=== PATIENT | female | born 1945 | race Caucasian/White ===

== ENCOUNTER → 2018-02-11 07:27 | Outpatient (CLI) | payer MEDICARE, OTHER, SELFPAY ==
[2018-02-11 10:46] LABS: Microalbumin,Random Urine 13.2 mg/L (NO RANGE EST.); Microalbumin:Creatinine Ratio 23.4 mg/g CRE (<30 mg/g CRE)
[2018-02-11 11:13] LABS: ALB/GLOB Ratio 1.1 RATIO (0.9-2.4); AST(SGOT) 23 U/L (15-37); Alanine Aminotransfer ALT/SGPT 28 U/L (13-56); Albumin, Serum 3.7 g/dL (3.2-5.0); Alkaline Phosphatase 76 U/L (45-117); Anion Gap 6 (5-15); BUN 24 mg/dL (7-18); BUN/Creat Ratio 34.1 RATIO (10-20); Calcium,Total 8.3 mg/dL (8.5-10.1); Chloride 106 mmol/L (98-107); Cholesterol 176 mg/dL (200); EST Glomerular Filtration Rate 87 mL/min (>60); Est Glom Filt Rate - Afr Amer 105 mL/min (>60); Globulin 3.3 g/dL (2.2-4.2); Glucose 97 mg/dL (74-106); High Density Lipoprotein 53 mg/dL; Sodium Level 142 mmol/L (136-145); Thyroid Stim Hormone (TSH) 3.89 uIU/mL (0.358-3.74); Triglycerides 104 mg/dL; Very Low Density Lipoprotein 21 mg/dL (5-40)
== END ==
PROVIDERS: Family Provider Family Medicine; PCP Family Medicine; Visit Provider Family Medicine
DX: E78.5 Hyperlipidemia, unspecified (principal); I10 Essential (primary) hypertension
CPT/HCPCS: 36415; 80053; 80061; 82043; 82570; 84443

== ENCOUNTER → 2018-08-12 11:29 | Outpatient (CLI) | payer MEDICARE, OTHER, SELFPAY ==
[2018-08-12 14:23] LABS: Vitamin D,25 Hydroxy 23.8 ng/mL (29.95-100.01)
[2018-08-12 14:33] LABS: Anion Gap 7 (5-15); BUN 15 mg/dL (7-18); Calcium,Total 9.2 mg/dL (8.5-10.1); Chloride 103 mmol/L (98-107); Creatinine, Serum 0.79 mg/dL (0.55-1.02); EST Glomerular Filtration Rate 76 mL/min (>60); Est Glom Filt Rate - Afr Amer 93 mL/min (>60); Glucose 84 mg/dL (74-106); Magnesium 2.1 mg/dL (1.6-2.6); Potassium 4.3 mmol/L (3.5-5.1); Sodium Level 140 mmol/L (136-145); Thyroid Stim Hormone (TSH) 2.97 uIU/mL (0.358-3.74)
[2018-08-12 14:51] LABS: PTHIN 47.9 pg/mL (18.4-80.1)
== END ==
PROVIDERS: Family Provider Family Medicine; PCP Family Medicine; Visit Provider Family Medicine
DX: E83.51 Hypocalcemia (principal); R00.2 Palpitations
CPT/HCPCS: 36415; 80048; 82306; 83735; 83970; 84443

== ENCOUNTER 2018-09-25 11:30 | Outpatient (RCR) | payer MEDICARE, OTHER, SELFPAY ==
--- NOTE | 2018-09-07 11:28 | HP.PTEVAL_ITS ---
Patient's Visit Information CARMEN CHENG is a 73 year old F referred to Physical Therapy by Etienne Pennington with a diagnosis of Hamstring Strain. Date of Evaluation: 09/04/18 Physical Therapist: Belen Santos - Visit Plan Frequency: 2-3x /Week Duration: 3 Weeks Plan: LE and core s/s- modality of US as needed - Subjective Findings: About 3 weeks ago saw her PCP and she had complained of pain in the back of the knee on the right side. He examined it and though it was her hamstring so he gave her an anti-inflammatory after a couple of weeks it continued to get worse and moved around the knee- and it has now stayed on the medial side of the knee. Changed the medication to Celebrex and ordered PT. Today she felt like she could be up a little longer but then she has been walking around its been pretty sore. Eases: ice/heat, medication. Most comfortable is sitting. Has been putting a pillow between her knees- side sleeper- not disturbed. Describes the pain as sharp and after doing that then its achy. Has not had any x-rays or MRI. Worst: 8/10 Best: 0/10 Agg: being up on it. Has been avoiding stairs but went down yesterday and has felt a little pinch. No radiating pain. No N/T in the foot. Insidious onsest- but raked leaves prior- but no incidence. PMhx: HTN, cholesterol, anxiety. Meds: simvistatin, petroprolol, adavain. - Objective Posture: Fh, RS, can correct with VC's but does not maintain. Gait: slightly antalgic decreased stance with poor heel/toe pattern. Stairs: asc/desc 8 recip with 2 HR and reports pain- poor control'. HR/TR: able. SLS: 10 sec without LOB. Palpation: not tender. ROM: 0-120 degrees. Strength: Ankle: 5/5, Knee: 4+/5, Hip: 4/5 throughout Core: fair minus - Goals Goal 1:: Patient will be I with HEP and progression Goal Time Frame: 4-6 Weeks Goal 2:: Patient will ambulate >300 feet with a normalized gait pattern Goal Time Frame: 4-6 Weeks Goal 3:: Patient will demo 5/5 strength in LE Goal Time Frame: 4-6 Weeks Goal 4:: Patient will report 0/10 pain Goal Time Frame: 4-6 Weeks - Rehabilitation Potential Physical Therapy Diagnosis: Paula presents with hypomobility- she has decreased strength and muscular endurance leading to increased pain with ADL's. Rehabilitation Potential: Fair - Anticipated Interventions Patient/Client Instruction: Educate patient on: Benefits of Fitness Program Therapeutic Exercise to Include: Strength training, Endurance training, Balance training, Agility training, Body mechanics, Postural training, Flexibilty training, Gait and locomotor training, Passive ROM, Active ROM, Dynamic Lumbar Stabilization For the Purpose of:: To improve muscle performance and motor function TENS: Yes Cryotherapy (ice pack, ice massage): Yes Thermo therapy (hot pack): Yes Ultrasound (thermal/non thermal): Yes For the Purpose of:: To decrease pain, To decrease swelling/inflammation Thank you for the opportunity to evaluate your patient. For Medicare and Medicare HMO plans, please review the plan of care and approve it. It will need to be FAXED BACK to us at [phone] for Medicare purposes. For Medicare only, by signing this I certify the plan of care. Please let me know if there are questions or concerns regarding this plan of care. Physician Signature : Date:
--- NOTE | 2018-09-25 11:46 | HP.PTDCSUM ---
HP - PT D/C Summary It has been my pleasure to treat CARMEN CHENG under orders from Etienne Penningotn MD, for the diagnosis of Hamstring Strain for a total of 9 visit(s). Discharge Date: Please see the following information for a summary of their discharge status. - Subjective Subjective: Patient reports that the knee is much better- she can walk around the house and do all normal stuff with minimal to no pain. Runs into a little bit of a snag walking upstairs with something in her hands. In the last few days she started taking Celebrex and that has really helped a lot and she is painfree. - Pain right knee Pain Intensity (Out of 10): 2 - Overall Improvement % Improvement: 100 - Objective Objective/Function: Posture: good posture in sitting in hard back chair Gait: no deviation noted Stairs: asc/desc 8 recip with no HR and good control and emily. HR/TR: able. SLS: 10 sec without LOB. Palpation: not tender. ROM: 0-120 degrees. Strength: Ankle: 5/5, Knee: 5/5, Hip: 4+/5 throughout Core: fair plus - Goals Goal 1:: Patient will be I with HEP and progression Goal Progress: Goal Met Goal 2:: Patient will ambulate >300 feet with a normalized gait pattern Goal Progress: Goal Met Goal 3:: Patient will demo 5/5 strength in LE Goal Progress: Goal Met Goal 4:: Patient will report 0/10 pain Goal Progress: Progressing - Plan Plan: Discharge to [facility] HEP - D/C Information If there are questions or concerns regarding this patient's physical therapy, please feel free to call me at [phone]. Thank you for the referral of this patient. Sincerely, Belen Santos DPT
== END 2018-09-25 19:00 | disposition home or self-care (01) ==
LOC: PT 11:30
PROVIDERS: Family Provider Family Medicine; PCP Family Medicine; Referring Provider Family Medicine; Visit Provider Family Medicine
DX: S76.311D Strain of muscle, fascia and tendon of the posterior muscle group at thigh level, right thigh, subsequent encounter (principal)
CPT/HCPCS: 97035; 97110; 97161; 97164

== ENCOUNTER → 2019-02-11 | Outpatient (CLI) | payer MEDICARE, OTHER, SELFPAY ==
[2019-02-11 10:14] LABS: Anion Gap 5 (5-15); BUN 14 mg/dL (7-18); BUN/Creat Ratio 21.7 RATIO (10-20); Calcium,Total 8.9 mg/dL (8.5-10.1); Chloride 107 mmol/L (98-107); Creatinine, Serum 0.64 mg/dL (0.55-1.02); EST Glomerular Filtration Rate 96 mL/min (>60); Est Glom Filt Rate - Afr Amer 116 mL/min (>60); Glucose 92 mg/dL (74-106); Magnesium 2.6 mg/dL (1.6-2.6); Potassium 4.2 mmol/L (3.5-5.1); Sodium Level 143 mmol/L (136-145)
[2019-02-11 10:45] LABS: Vitamin D,25 Hydroxy 31.8 ng/mL (29.95-100.01)
== END | disposition home or self-care (01) ==
LOC: MFPLAB 08:42
PROVIDERS: Family Provider Family Medicine; PCP Family Medicine; Referring Provider Family Medicine; Visit Provider Family Medicine
DX: I10 Essential (primary) hypertension (principal); E55.9 Vitamin D deficiency, unspecified
CPT/HCPCS: 36415; 80048; 82306; 83735

== ENCOUNTER → 2019-06-30 14:17 | Outpatient (CLI) | payer MEDICARE, OTHER, SELFPAY ==
--- NOTE | 2019-06-30 14:24 | RAD_ITS ---
STUDY: X-RAY CHEST REASON FOR EXAM: Female, 74 years old. Preoperative exam TECHNIQUE: Frontal and lateral views of the chest COMPARISON: None. FINDINGS: The lungs are clear. There are no pleural effusions. There is no pneumothorax. The heart is normal in size. The visualized osseous structures are within normal limits. RAD/Chest PA and Lateral IMPRESSION: Clear lungs. Electronically Signed: Costa Castañeda, at 19:16 EDT Tel , Service support ,
--- NOTE | 2019-06-30 14:37 | EKG12_ITS ---
Test Reason : PRE OP Blood Pressure : / mmHG Vent. Rate : 057 BPM Atrial Rate : 057 BPM P-R Int : 180 ms QRS Dur : 084 ms QT Int : 448 ms P-R-T Axes : 053 012 049 degrees QTc Int : 436 ms Sinus bradycardia Possible Left atrial enlargement Borderline ECG Confirmed by CIRO ROBLEDO ([id number]), business editor RAINER MCMAHON ([id number]) on 07/05/2019 12:33:52 PM Also confirmed by CIRO ROBLEDO ([id number]), business editor BA CROCKETT ([id number]) on 07/07/2019 8:55:13 AM Referred By: Kelechi Crockett Confirmed By:CIRO ROBLEDO
== END ==
PROVIDERS: Family Provider Family Medicine; PCP Family Medicine; Referring Provider Orthopaedic Surgery; Visit Provider Orthopaedic Surgery
DX: Z01.811 Encounter for preprocedural respiratory examination (principal); Z01.810 Encounter for preprocedural cardiovascular examination
CPT/HCPCS: 71046; 93005

== ENCOUNTER → 2019-08-19 13:46 | Outpatient (CLI) | payer MEDICARE, OTHER, SELFPAY ==
--- NOTE | 2019-08-19 13:49 | VDLE_ITS ---
Reason For Study: Pain RIGHT GSV is normal. CFV is compressible, spontaneous, phasic, competent and demonstrates normal augmentation. FV is compressible, spontaneous, phasic, competent and demonstrates normal augmentation. POP V is compressible, spontaneous, phasic, competent and demonstrates normal augmentation. T/P Trunk is compressible. PTV is compressible. RT PerV is compressible. Procedure Exam performed in department. A preliminary report was called and/or faxed to [facility]. Interpretation Summary Deep veins of the right lower extremity are patent and compressible segmentally. There is no evidence of right lower extremity deep vein thrombosis. Valvular competence appears intact within the proximal deep venous system on the right . The right great saphenous vein appears patent and compressible segmentally. Ordering Physician: Tami Stovall Referring Physician: Etienne Pennington MD Performed By: Adriana Baumann RVT
== END ==
PROVIDERS: Family Provider Family Medicine; PCP Family Medicine; Referring Provider Physician Assistant; Visit Provider Physician Assistant
DX: M79.661 Pain in right lower leg (principal); Z96.651 Presence of right artificial knee joint; Z47.1 Aftercare following joint replacement surgery
CPT/HCPCS: 93971

== ENCOUNTER → 2019-11-10 12:24 | Outpatient (CLI) | payer MEDICARE, OTHER, SELFPAY ==
--- NOTE | 2019-11-10 12:28 | BI_ITS ---
MAMMOGRAPHY - BILATERAL SCREENING REASON FOR EXAM: Female, 74 years old. Routine annual screening examination. PERTINENT HISTORY: Non-contributory. Remote right needle breast biopsy. TECHNIQUE: Digital bilateral breast jono (3D mammographic acquisition) in the CC and MLO projections. 2-D mediolateral oblique (MLO) and craniocaudad (CC) views of both breasts were obtained. CAD: Full Field Digital Mammography with Computer Added Detection was performed. COMPARISON: Comparison is made with prior examination of September 08, 2017. FINDINGS: Breast Composition: The breasts are heterogeneously dense, which may obscure small masses. There are no dominant masses or suspicious calcifications. No other significant abnormalities are identified. There has been no significant change since the prior study. BI/SCREEN MAMM (CAD) W/JONO BILAT IMPRESSION: Stable bilateral screening mammogram. Yearly follow-up mammogram recommended. (A) ASSESSMENT CATEGORY: BIRADS Category 1: Negative. A letter regarding these results will be sent to the patient by the facility within 30 days. Approximately 10% of breast cancers are not detected by mammography. A normal mammogram should not delay biopsy of a clinically suspicious abnormality. [id number] Electronically Signed: Bhavik Rose, at 13:45 EST , Service support ,
== END ==
PROVIDERS: PCP Family Medicine; Referring Provider Family Medicine; Visit Provider Family Medicine
DX: Z12.31 Encounter for screening mammogram for malignant neoplasm of breast (principal)
CPT/HCPCS: 77063; 77067

== ENCOUNTER → 2020-01-25 12:28 | Outpatient (CLI) | payer MEDICARE, OTHER, SELFPAY ==
[2020-01-25 14:59] LABS: Hematocrit 43.6 % (37-47); Mean Corp Hgb Conc 32.1 g/dL (32-36); Mean Corpuscular Hgb 28.1 pg (27.0-32.0); Mean Corpuscular Volume 87.4 fL (81-99); Mean Platelet Vol. 10.6 fl (6.2-12.0); Platelet Count 256 K/mm3 (150-450); RBC Distribution Width CV 13.2 % (11.6-14.6); RBC Distribution Width SD 41.9 fl (35.1-43.9); Red Blood Count 4.99 M/mm3 (4.2-5.4); White Blood Count 7.6 K/mm3 (4.4-11.0)
[2020-01-25 15:27] LABS: ALB/GLOB Ratio 1.2 RATIO (0.9-2.4); AST(SGOT) 21 U/L (15-37); Alanine Aminotransfer ALT/SGPT 25 U/L (13-56); Albumin, Serum 3.9 g/dL (3.2-5.0); Alkaline Phosphatase 91 U/L (45-117); Anion Gap 7 (5-15); BUN 15 mg/dL (7-18); BUN/Creat Ratio 18.7 RATIO (10-20); Chloride 106 mmol/L (98-107); EST Glomerular Filtration Rate 74 mL/min (>60); Est Glom Filt Rate - Afr Amer 90 mL/min (>60); Globulin 3.3 g/dL (2.2-4.2); Glucose 145 mg/dL (74-106); Potassium 4.1 mmol/L (3.5-5.1); Protein, Total 7.2 g/dL (6.4-8.2); Sodium Level 140 mmol/L (136-145); Thyroid Stim Hormone (TSH) 2.82 uIU/mL (0.358-3.74)
[2020-01-25 16:00] LABS: Vitamin D,25 Hydroxy 55.2 ng/mL
== END ==
PROVIDERS: PCP Family Medicine; Referring Provider Family Medicine; Visit Provider Family Medicine
DX: R00.2 Palpitations (principal); E55.9 Vitamin D deficiency, unspecified
CPT/HCPCS: 36415; 80053; 82306; 84443; 85027

== ENCOUNTER → 2020-05-23 10:32 | Outpatient (CLI) | payer MEDICARE, SELFPAY ==
[2020-05-23 12:55] LABS: Cholesterol 177 mg/dL (200); High Density Lipoprotein 63 mg/dL; Triglycerides 94 mg/dL; Very Low Density Lipoprotein 19 mg/dL (5-40)
== END ==
PROVIDERS: PCP Family Medicine; Referring Provider Family Medicine; Visit Provider Family Medicine
DX: E78.5 Hyperlipidemia, unspecified (principal)
CPT/HCPCS: 36415; 80061

== ENCOUNTER → 2020-05-23 12:52 | Outpatient (CLI) | payer MEDICARE, OTHER, SELFPAY ==
--- NOTE | 2020-05-23 12:58 | BD_ITS ---
STUDY: DUAL ENERGY X-RAY ABSORPTIOMETRY / DXA REASON FOR EXAM: Female, 75 years old. 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 COMPARISON: None. FINDINGS: Lumbar Spine (L1-L4): g/cm2 (0.991) / T-score (-1.6) / Z-score (0.1) Findings are suggestive of osteopenia with a moderate fracture risk. Left Femur Total: g/cm2 (0.853) / T-score (-1.2) / Z-score (0.4) Left Femoral Neck: g/cm2 (0.835) / T-score (-1.5) / Z-score (0.4) Right Femur Total: g/cm2 (0.778) / T-score (-1.8) / Z-score (-0.2) Right Femoral Neck: g/cm2 (0.787) / T-score (-1.8) / Z-score (0.0) BD/Dexa Bone Density Study IMPRESSION: The patient is considered osteopenic as outlined below according to World Alfredo Organization (WHO) criteria with a moderate fracture risk. Reference Information: The T-score is the number of standard deviations above or below the standard which is normal for young adults at their peak bone mineral density. The World Health Organization (WHO) interprets the T-scores as follows: Above -1 Normal bone density Between -1 and -2.5 Osteopenia Equal to / or below -2.5 Osteoporosis As a practical clinical guideline, osteopenia may be graded as follows: Mild -1 through -1.5 Moderate -1.6 through -2.0 Severe -2.1 through -2.4 The Z-score is the number of standard deviations above or below age-matched controls. A Z-score of less than -1.5 would be considered abnormal. References: 1. NIH Osteoporosis and Related Bone Diseases http://www.osteo.org 2. International Society for Clinical Densitometry http://www.iscd.org 3. National Osteoporosis Foundation http://www.nof.org Electronically Signed: Bhavik Rose, at 12:59 EDT , Service support ,
== END ==
PROVIDERS: PCP Family Medicine; Referring Provider Family Medicine; Visit Provider Family Medicine
DX: Z00.00 Encounter for general adult medical examination without abnormal findings (principal); Z78.0 Asymptomatic menopausal state; E78.5 Hyperlipidemia, unspecified
CPT/HCPCS: 36415; 77080; 80061

== ENCOUNTER → 2020-11-13 11:54 | Outpatient (CLI) | payer MEDICARE, OTHER, SELFPAY ==
--- NOTE | 2020-11-13 11:58 | BI_ITS ---
MAMMOGRAPHY - BILATERAL SCREENING REASON FOR EXAM: Female, 75 years old. Routine annual screening examination. PERTINENT HISTORY: Non-contributory. TECHNIQUE: Digital bilateral breast jono (3D mammographic acquisition) in the CC and MLO projections. 2-D mediolateral oblique (MLO) and craniocaudad (CC) views of both breasts were obtained. CAD: Full Field Digital Mammography with Computer Added Detection was performed. COMPARISON: Comparison is made with prior examination dated 11/10/2019 and 09/08/2017. FINDINGS: Breast Composition: The breasts are heterogeneously dense, which may obscure small masses. There are no dominant masses or suspicious calcifications. No other significant abnormalities are identified. There has been no significant change since the prior study. BI/SCRN MAMM (CAD)W/JONO BILAT IMPRESSION: Stable bilateral screening mammogram. Yearly follow-up mammogram recommended. (A) ASSESSMENT CATEGORY: BIRADS Category 1: Negative. A letter regarding these results will be sent to the patient by the facility within 30 days. Approximately 10% of breast cancers are not detected by mammography. A normal mammogram should not delay biopsy of a clinically suspicious abnormality. [id number] Electronically Signed: Bhavik Rose MD at 12:49 EST , Service support ,
== END ==
PROVIDERS: PCP Family Medicine; Referring Provider Family Medicine; Visit Provider Family Medicine
DX: Z12.31 Encounter for screening mammogram for malignant neoplasm of breast (principal)
CPT/HCPCS: 77063; 77067

== ENCOUNTER → 2021-08-17 | Outpatient (CLI) | payer MEDICARE, OTHER, SELFPAY ==
[2021-08-17 19:38] LABS: M R Staph aureus DNA By PCR Negative (Negative); Probe Check PASS; Specimen Processing Control PASS; Staph aureus DNA By PCR NEGATIVE (Negative)
== END | disposition home or self-care (01) ==
PROVIDERS: PCP Family Medicine; Visit Provider Podiatrist
DX: L03.90 Cellulitis, unspecified (principal)
CPT/HCPCS: 87070; 87075; 87205; 87640

== ENCOUNTER → 2021-09-03 | Outpatient (CLI) | payer MEDICARE, OTHER, SELFPAY | END | disposition home or self-care (01) | PROVIDERS: PCP Family Medicine; Referring Provider Family Medicine; Visit Provider Family Medicine | DX: R19.7 Diarrhea, unspecified (principal) | CPT/HCPCS: 87493 ==

== ENCOUNTER 2021-11-14 13:59 | Outpatient (CLI) | payer MEDICARE, OTHER, SELFPAY ==
--- NOTE | 2021-11-14 14:00 | BI_ITS ---
MAMMOGRAPHY - BILATERAL SCREENING REASON FOR EXAM: Female, 76 years old. Routine annual screening examination. PERTINENT HISTORY: Non-contributory. TECHNIQUE: Digital bilateral breast jono (3D mammographic acquisition) in the CC and MLO projections. 2-D mediolateral oblique (MLO) and craniocaudad (CC) views of both breasts were obtained. CAD: Full Field Digital Mammography with Computer Added Detection was performed. COMPARISON: Comparison is made with prior study dated 11/13/2020 and 11/10/2019. FINDINGS: Breast Composition: The breasts are heterogeneously dense, which may obscure small masses. There are no dominant masses or suspicious calcifications. No other significant abnormalities are identified. There has been no significant change since the prior study. BI/SCRN MAMM (CAD)W/JONO BILAT IMPRESSION: Stable bilateral screening mammogram. Yearly follow-up mammogram recommended. (A) ASSESSMENT CATEGORY: BIRADS Category 1: Negative. A letter regarding these results will be sent to the patient by the facility within 30 days. Approximately 10% of breast cancers are not detected by mammography. A normal mammogram should not delay biopsy of a clinically suspicious abnormality. [id number] Electronically Signed: Bhavik Rose MD at 14:48 EST ,
== END 2021-11-14 23:59 | disposition home or self-care (01) ==
LOC: OPBI 13:59
PROVIDERS: PCP Family Medicine; Referring Provider Family Medicine; Visit Provider Family Medicine
DX: Z12.31 Encounter for screening mammogram for malignant neoplasm of breast (principal)
CPT/HCPCS: 77063; 77067

== ENCOUNTER 2021-12-21 14:52 | Outpatient (CLI) | payer MEDICARE, OTHER, SELFPAY ==
[2021-12-21 18:16] LABS: Anion Gap 4 (5-15); BUN 15 mg/dL (7-18); BUN/Creat Ratio 18.7 RATIO (10-20); Calcium,Total 8.9 mg/dL (8.5-10.1); Chloride 105 mmol/L (98-107); EST Glomerular Filtration Rate 74 mL/min (>60); Est Glom Filt Rate - Afr Amer 90 mL/min (>60); Glucose 129 mg/dL (74-106); Potassium 3.6 mmol/L (3.5-5.1); Sodium Level 141 mmol/L (136-145); Thyroid Stim Hormone (TSH) 3.25 uIU/mL (0.358-3.74)
[2021-12-21 18:26] LABS: Microalbumin:Creatinine Ratio 45.5 mg/g CRE (<30 mg/g CRE)
== END 2021-12-21 23:59 | disposition home or self-care (01) ==
LOC: MFPLAB 14:57
PROVIDERS: PCP Family Medicine; Referring Provider Family Medicine; Visit Provider Family Medicine
DX: I10 Essential (primary) hypertension (principal); F41.9 Anxiety disorder, unspecified; L71.9 Rosacea, unspecified
CPT/HCPCS: 36415; 80048; 82043; 82570; 84443

== ENCOUNTER → 2022-11-08 | Outpatient (CLI) | payer MEDICARE, OTHER, SELFPAY ==
[2022-11-08 13:38] LABS: ALB/GLOB Ratio 1.1 RATIO (0.9-2.4); AST(SGOT) 21 U/L (15-37); Alanine Aminotransfer ALT/SGPT 22 U/L (13-56); Albumin, Serum 3.7 g/dL (3.2-5.0); Alkaline Phosphatase 83 U/L (45-117); Anion Gap 7 (5-15); BUN 17 mg/dL (7-18); BUN/Creat Ratio 22.6 RATIO (10-20); Calcium,Total 9.2 mg/dL (8.5-10.1); Chloride 107 mmol/L (98-107); Cholesterol 195 mg/dL (200); Creatinine, Serum 0.75 mg/dL (0.55-1.02); EST Glomerular Filtration Rate 80 mL/min (>60); Est Glom Filt Rate - Afr Amer 96 mL/min (>60); Globulin 3.5 g/dL (2.2-4.2); Glucose 105 mg/dL (74-106); High Density Lipoprotein 57 mg/dL; Potassium 4.4 mmol/L (3.5-5.1); Protein, Total 7.2 g/dL (6.4-8.2); Sodium Level 143 mmol/L (136-145); Thyroid Stim Hormone (TSH) 2.67 uIU/mL (0.358-3.74); Triglycerides 140 mg/dL; Very Low Density Lipoprotein 28 mg/dL (5-40)
== END | disposition home or self-care (01) ==
PROVIDERS: PCP Family Medicine; Referring Provider Family Medicine; Visit Provider Family Medicine
DX: I10 Essential (primary) hypertension (principal)
CPT/HCPCS: 36415; 80053; 80061; 84443

== ENCOUNTER → 2022-11-20 | Outpatient (CLI) | payer MEDICARE, OTHER, SELFPAY ==
--- NOTE | 2022-11-20 09:21 | BI_ITS ---
MAMMOGRAPHY - BILATERAL SCREENING REASON FOR EXAM: Female, 77 years old. Routine annual screening examination. PERTINENT HISTORY: Non-contributory. TECHNIQUE: Digital bilateral breast jono (3D mammographic acquisition) in the CC and MLO projections. 2-D mediolateral oblique (MLO) and craniocaudad (CC) views of both breasts were obtained. CAD: Full Field Digital Mammography with Computer Added Detection was performed. COMPARISON: Comparison is made with prior study dated 11/14/2021 and 11/13/2020. FINDINGS: Breast Composition: The breasts are heterogeneously dense, which may obscure small masses. There are no dominant masses or suspicious calcifications. No other significant abnormalities are identified. There has been no significant change since the prior study. BI/SCRN MAMM (CAD)W/JONO BILAT IMPRESSION: Stable bilateral screening mammogram. Yearly follow-up mammogram recommended. (A) ASSESSMENT CATEGORY: BIRADS Category 1: Negative. A letter regarding these results will be sent to the patient by the facility within 30 days. Approximately 10% of breast cancers are not detected by mammography. A normal mammogram should not delay biopsy of a clinically suspicious abnormality. [id number] Electronically Signed: Bhavik Rose MD at 10:28 EST ,
--- NOTE | 2022-11-20 09:25 | BD_ITS ---
STUDY: DUAL ENERGY X-RAY ABSORPTIOMETRY / DXA REASON FOR EXAM: Female, 77 years old. M85.89 TECHNIQUE: Bone Mineral Density (BMD) measurements of lumbar spine and bilateral hips were obtained. COMPARISON: Comparison is made with prior study dated 05/23/2020. FINDINGS: Lumbar Spine (L1-L4): g/cm2 (0.867) / T-score (-1.6) / Z-score (0.8) Findings are suggestive of osteopenia with a moderate fracture risk. Left Femur Total: g/cm2 (0.804) / T-score (-1.1) / Z-score (0.7) Left Femoral Neck: g/cm2 (0.665) / T-score (-1.7) / Z-score (0.5) Right Femur Total: g/cm2 (0.747) / T-score (-1.6) / Z-score (0.2) Right Femoral Neck: g/cm2 (0.625) / T-score (-2.0) / Z-score (0.1) The T-Scores on the most recent prior examination were: Lumbar Spine (L1-L4): There has been worsening of bone density since the previous examination. Left Femur Total: which represents an improvement of 1.7%. Right Femur Total: which represents an improvement of 4%. BD/Dexa Bone Density Study IMPRESSION: The patient is considered osteopenic as outlined below according to World Alfredo Organization (WHO) criteria with a moderate fracture risk. There has been improvement of bone density since the previous examination. Reference Information: The T-score is the number of standard deviations above or below the standard which is normal for young adults at their peak bone mineral density. The World Health Organization (WHO) interprets the T-scores as follows: Above -1 Normal bone density Between -1 and -2.5 Osteopenia Equal to / or below -2.5 Osteoporosis As a practical clinical guideline, osteopenia may be graded as follows: Mild -1 through -1.5 Moderate -1.6 through -2.0 Severe -2.1 through -2.4 The Z-score is the number of standard deviations above or below age-matched controls. A Z-score of less than -1.5 would be considered abnormal. References: 1. NIH Osteoporosis and Related Bone Diseases www osteo.org 2. International Society for Clinical Densitometry www iscd.org 3. National Osteoporosis Foundation www nof.org Electronically Signed: Bhavik Rose MD at 8:18 EST ,
== END | disposition home or self-care (01) ==
LOC: OPBD 09:18
PROVIDERS: PCP Family Medicine; Referring Provider Family Medicine; Visit Provider Family Medicine
DX: Z12.31 Encounter for screening mammogram for malignant neoplasm of breast (principal); M85.89 Other specified disorders of bone density and structure, multiple sites
CPT/HCPCS: 77063; 77067; 77080

== ENCOUNTER → 2023-04-02 | Outpatient (CLI) | payer MEDICARE, OTHER, SELFPAY ==
[2023-04-02 13:15] LABS: Anion Gap 4 (5-15); BUN 23 mg/dL (7-18); BUN/Creat Ratio 25.1 RATIO (10-20); Calcium,Total 9.1 mg/dL (8.5-10.1); Chloride 104 mmol/L (98-107); Creatinine, Serum 0.92 mg/dL (0.55-1.02); EST Glomerular Filtration Rate 63 mL/min (>60); Est Glom Filt Rate - Afr Amer 77 mL/min (>60); Glucose 97 mg/dL (74-106); Potassium 4.4 mmol/L (3.5-5.1); Sodium Level 136 mmol/L (136-145)
== END | disposition home or self-care (01) ==
LOC: MFPLAB 10:17
PROVIDERS: PCP Family Medicine; Visit Provider Family Medicine
DX: I10 Essential (primary) hypertension (principal)
CPT/HCPCS: 36415; 80048

== ENCOUNTER → 2023-06-20 | Outpatient (CLI) | payer MEDICARE, OTHER, SELFPAY ==
[2023-06-20 12:47] LABS: Anion Gap 4 (5-15); BUN 20 mg/dL (7-18); BUN/Creat Ratio 22.9 RATIO (10-20); Calcium,Total 9.4 mg/dL (8.5-10.1); Chloride 102 mmol/L (98-107); Creatinine, Serum 0.87 mg/dL (0.55-1.02); EST Glomerular Filtration Rate 67 mL/min (>60); Est Glom Filt Rate - Afr Amer 81 mL/min (>60); Glucose 91 mg/dL (74-106); Potassium 4.2 mmol/L (3.5-5.1); Sodium Level 136 mmol/L (136-145)
== END | disposition home or self-care (01) ==
LOC: MFPLAB 11:30
PROVIDERS: PCP Family Medicine; Visit Provider Family Medicine
DX: I10 Essential (primary) hypertension (principal)
CPT/HCPCS: 36415; 80048; 82043; 82570

== ENCOUNTER → 2023-12-18 | Outpatient (CLI) | payer MEDICARE, OTHER, SELFPAY ==
--- NOTE | 2023-12-18 12:05 | BI_ITS ---
MAMMOGRAPHY - BILATERAL SCREENING REASON FOR EXAM: Female, 78 years old. Routine annual screening examination. PERTINENT HISTORY: Non-contributory. Remote right needle breast biopsy. TECHNIQUE: Digital bilateral breast jono (3D mammographic acquisition) in the CC and MLO projections. 2-D mediolateral oblique (MLO) and craniocaudad (CC) views of both breasts were obtained. CAD: Full Field Digital Mammography with Computer Added Detection was performed. COMPARISON: Comparison is made with prior study dated November 20, 2022 and November 14, 2021. FINDINGS: Breast Composition: The breasts are heterogeneously dense, which may obscure small masses. There are no dominant masses or suspicious calcifications. No other significant abnormalities are identified. There has been no significant change since the prior study. BI/SCRN MAMM (CAD)W/JONO BILAT IMPRESSION: Stable bilateral screening mammogram. Yearly follow-up mammogram recommended. (A) ASSESSMENT CATEGORY: BIRADS Category 1: Negative. A letter regarding these results will be sent to the patient by the facility within 30 days. Approximately 10% of breast cancers are not detected by mammography. A normal mammogram should not delay biopsy of a clinically suspicious abnormality. [id number] Electronically Signed: Bhavik Rose MD at 12:43 EDT ,
== END | disposition home or self-care (01) ==
LOC: OPBI 12:04
PROVIDERS: PCP Family Medicine; Referring Provider Family Medicine; Visit Provider Family Medicine
DX: Z12.31 Encounter for screening mammogram for malignant neoplasm of breast (principal)
CPT/HCPCS: 77063; 77067

== ENCOUNTER → 2024-06-03 | Outpatient (CLI) | payer MEDICARE, OTHER, SELFPAY ==
[2024-06-03 10:31] LABS: Vitamin D,25 Hydroxy 39.3 ng/mL
[2024-06-03 10:59] LABS: AST(SGOT) 18 U/L (15-37); Alanine Aminotransfer ALT/SGPT 22 U/L (13-56); Albumin, Serum 3.5 g/dL (3.2-5.0); Alkaline Phosphatase 84 U/L (45-117); Anion Gap 5 (5-15); BUN 14 mg/dL (7-18); BUN/Creat Ratio 18.8 RATIO (10-20); Calcium,Total 9.1 mg/dL (8.5-10.1); Chloride 106 mmol/L (98-107); Cholesterol 167 mg/dL (200); Creatinine, Serum 0.74 mg/dL (0.55-1.02); EST Glomerular Filtration Rate 80 mL/min (>60); Est Glom Filt Rate - Afr Amer 97 mL/min (>60); Globulin 3.5 g/dL (2.2-4.2); Glucose 104 mg/dL (74-106); High Density Lipoprotein 60 mg/dL; Potassium 4.2 mmol/L (3.5-5.1); Sodium Level 139 mmol/L (136-145); Triglycerides 129 mg/dL; Very Low Density Lipoprotein 26 mg/dL (5-40)
[2024-06-03 13:01] LABS: Microalbumin,Random Urine < 5.0 mg/L (NO RANGE EST.)
== END | disposition home or self-care (01) ==
LOC: MFPLAB 08:42
PROVIDERS: PCP Family Medicine; Visit Provider Family Medicine
DX: E55.9 Vitamin D deficiency, unspecified (principal); E78.5 Hyperlipidemia, unspecified; I10 Essential (primary) hypertension
CPT/HCPCS: 36415; 80053; 80061; 82043; 82306; 82570

== ENCOUNTER → 2024-12-28 | Outpatient (CLI) | payer MEDICARE, OTHER, SELFPAY ==
--- NOTE | 2024-12-28 10:30 | BI_ITS ---
EXAM: SCREENING MAMM (CAD), BILAT DATE: 12/28/2024 CLINICAL HISTORY: F, Age 79 y/o , No family history. Prior right needle breast biopsy. BREAST CANCER RISK ASSESSMENT: Not assessed. TECHNIQUE: Bilateral screening digital breast tomosynthesis with 2D and 3D images. Computer aided detection. COMPARISON: Prior exam(s) dated December 18, 2023.. FINDINGS: TISSUE DENSITY: The breast tissue is heterogenously dense, which may obscure small masses. Bilateral Breast Mammographic Findings: No significant masses, calcifications or other abnormalities are identified. BI/SCREENING MAMM (CAD), BILAT IMPRESSION: Right Breast: BIRADS 1 NEGATIVE. Left Breast: BIRADS 1 NEGATIVE. OVERALL FINAL ASSESSMENT: BIRADS 1 NEGATIVE RECOMMENDATION: Routine annual follow-up in 1 Year A letter with findings and recommendations will be mailed to the patient. Reading Location: [id number]
== END | disposition home or self-care (01) ==
PROVIDERS: PCP Family Medicine; Referring Provider Family Medicine; Visit Provider Family Medicine
DX: Z12.31 Encounter for screening mammogram for malignant neoplasm of breast (principal)
CPT/HCPCS: 77067

== ENCOUNTER → 2025-06-21 | Outpatient (CLI) | payer MEDICARE, OTHER, SELFPAY ==
--- OUTSIDE RECORDS SUMMARY | 2025-06-21 07:40 | XMS RPT_ITS | CCD ---
Author Organization [facility] [place] [facility] Care Team Providers Care Lamp [employer] [address] [employer] Name Role Phone AYAZ CROCKETT DR Admitting Unavailable AYAZ CROCKETT DR Attending Unavailable AYAZ CROCKETT DR Primary Care Unavailable OTIS PENNINGTON Consulting Unavailable PROVIDER, UNKNOWN Consulting Unavailable AYAZ CROCKETT DR Admitting Unavailable AYAZ CROCKETT DR Attending Unavailable AYAZ CROCKETT DR Primary Care Unavailable OTIS PENNINGTON Consulting Unavailable PROVIDER, UNKNOWN Consulting Unavailable Gorge ROBBINS, Dr. Clifton Primary Care Provider Gorge ROBBINS, Dr. Clifton Attending Provider [phone] Dr. Otis Pennington MD Referring Provider [phone] Otis Pennington Primary Care Unavailable Otis Pennington Attending Unavailable Otis Pennington Attending Unavailable Otis Pennington Referring Unavailable Otis Pennington Primary Care Unavailable Allergies Allergy Classification Reported Allergen(s) Allergy Type Date of Onset Reaction(s) Facility (1 source) Sulfamethoxazole / Trimethoprim Drug Allergy [facility] (1 source) Sulfonamides (Antibiotic) Drug allergy (disorder) [facility] (1 source) Thimerosal; Translations: [THIMEROSAL] Drug Allergy [facility] Problems Problem Classification Problem Date Documented Da te Episodic/Chronic Nutritional deficiencies (1 source) Vitamin D deficiency, unspecified; Translations: [Vitamin D deficiency, unspecified] Onset: 10-04-2024 Chronic Other screening for suspected conditions (not mental disorders or infectious disease) (1 source) Encounter for screening mammogram for malignant neoplasm of breast; Translations: [Encounter for screening mammogram for malignant neoplasm of breast] Onset: 01-03-2025 Episodic Results Test Name Value Interpretation Reference Range Facility Breast imaging reportOrdered By: Bhavik Rose on 12-28-2024 Study report [facility] [address] [place] [address] SCREENING MAMM (CAD), BILAT MR#: [id number] Acct: [id number] Name: CARMEN CHENG Rep #: [id number] : 1945 F 79 From: Miguel Rose MD PCP: Dr. Otis Pennington MD Status: [facility] CLI Study:SCREENING MAMM (CAD), BILAT Date of Exa m: 12/28/24 Exam# [id number] Ordering Dr: Norm Pennington MD EXAM: SCREENING MAMM (CAD), BILAT DATE: 12/28/2024 CLINICAL HISTORY: F, Age 79 y/o , No family history. Prior right needle breast biopsy. BREAST CANCER RISK ASSESSMENT: Not assessed. TECHNIQUE: Bilateral screening digital breast tomosynthesis with 2D and 3D images. Computeraided detection. COMPARISON: Prior exam(s) dated December 18, 2023.. FINDINGS: TISSUE DENSITY: The breast tissue is heterogenously dense, which may obscure small masses. Bilateral Breast Mammographic Findings: No significant masses, calcifications or other abnormalities are identified. BI/SCREENING MAMM (CAD), BILAT IMPRESSION: Right Breast: BIRADS 1 NEGATIVE. Left Breast: BIRADS 1 NEGATIVE. OVERALL FINAL ASSESSMENT: BIRADS 1 NEGATIVE RECOMMENDATION: Routine annual follow-up in 1 Year A letter with findings and recommendations will be mailed to the patient. Reading Location: [id number] CC: Dr. Otis Pennington MD ~ Ncr Operator: Signed [facility] SCREENING MAMM (CAD), BILATo n 12-28-2024 SCREENING MAMM (CAD), BILAT [facility] [address] [place] [address] SCREENING MAMM (CAD), BILAT MR#: [id number] Acct: [id number] Name: CARMEN CHENG Rep #: [id number] : 1945 F 79 From: Bhavik castro MD PCP: Dr. Otis Pennington MD Status: [facility] CLI Study: SCREENING MAMM (CAD), BILAT Date of Exam: 10/23 Exam# [id number] Ordering Dr: Otis Pennington MD EXAM: SCREENING MAMM (CAD), BILAT DATE: 12/28/2024 CLINICAL HISTORY: F, Age 79 y/o , No family history. Prior right needle breast biopsy. BREAST CANCER RISK ASSESSMENT: Not assessed. TECHNIQUE: Bilateral screening digital breast tomosynthesis with 2D and 3D images. Computer aided detection. COMPARISON: Prior exam(s) dated December 18, 2023.. FINDINGS: TISSUE DENSITY: The breast tissue is heterogenously dense, which may obscure small masses. Bilateral Breast Mammographic Findings: No significant masses, calcifications or other abnormalities are identified. BI/SCREENING MAMM (CAD), BILAT IMPRESSION: Right Breast: BIRADS 1 NEGATIVE. Left Breast: BIRADS 1 NEGATIVE. OVERALL FINAL ASSESSMENT: BIRADS 1 NEGATIVE RECOMMENDATION: Routine annual follow-up in 1 Year A letter with findings and recommendations will be mailed to the patient. Reading Location: [id number] CC: Dr. Otis Pennington MD Ncr Operator: Signed Normal [facility] Comprehensive Metabolic Prof ilon 06-03-2024 Albumin [Mass/Vol] 3.5 g/dL Normal 3.2-5.[address] [facility] Comment on above: Order Comment: Order Date: 06/01/24 Order Info: [id number] - CMP Order Info: [id number] - LIPID Performed By: #### L 502.0250, L506.1000, L500.4050, L500.4100 #### [facility] [address] [place], [place], [address] Albumin/Globulin [Mass ratio] 1.0 {ratio} Normal 0.9-2.4 [facility] Comment on above: Order Comment: Order Date: 06/01/24 Order Info: [id number] - CMP Order Info: [id number] - LIPID Performed By: #### L 502.0250, L506.1000, L500.4050, L500.4100 #### [facility] [address] [place], [address] ALK P 84 U/L Normal 45-117 [facility] Comment on above: Order Comment: Order Date: 06/01/24 Order Info: [id number] - CMP Order Info: [id number] - LIPID Performed By: #### L 502.0250, L506.1000, L500.4050, L500.4100 #### [facility] [address] [place], [address] ALT [Catalytic activity/Vol] 22 U/L Normal 13-56 [facility] Comment on above: Order Comment: Order Date: 06/01/24 Order Info: [id number] - CMP Order Info: [id number] - LIPID Performed By: #### L 502.0250, L506.1000, L500.4050, L500.4100 #### [facility] [address] [place], [address] AST [Catalytic activity/Vol] 18 U/L Normal 15-37 [facility] Comment on above: Order Comment: Order Date: 06/01/24 Order Info: [id number] - CMP Order Info: [id number] - LIPID Performed By: #### L 502.0250, L506.1000, L500.4050, L500.4100 #### [facility] [address] [place], [address] Bilirubin [Mass/Vol] 0.60 mg/dL Normal 0.20-1.[address] [facility] Comment on above: Order Comment: Order Date: 06/01/24 Order Info: [id number] - CMP Order Info: [id number] - LIPID Result Comment: For patients on eltrombopag therapy, use of Dimension [place] TBIL is not recommended. Performed By: #### L 502.0250, L506.1000, L500.4050, L500.4100 #### [facility] [address] [place], [address] BUN/CRE 18.8 RATIO Normal 10-20 [facility] Comment on above: Order Comment: Order Date: 06/01/24 Order Info: [id number] - CMP Order Info: [id number] - LIPID Performed By: #### L 502.0250, L506.1000, L500.4050, L500.4100 #### [facility] [address] [place], [address] CA,Total 9.1 mg/dL Normal 8.5-10.1 [facility] Comment on above: Order Comment: Order Date: 06/01/24 Order Info: [id number]- - CMP Order Info: [id number] - LIPID Performed By: #### L 502.0250, L506.1000, L500.4050, L500.4100 #### [facility] [address] [place], [address] Chloride [Moles/Vol] 106 mmol/L Normal 98-[address] [facility] Comment on above: Order Comment: Order Date: 06/01/24 Order Info: [id number] - CMP Order Info: [id number] - LIPID Performed By: #### L 502.0250, L506.1000, L500.4050, L500.4100 #### [facility] [address] [place], [address] CO2 [Moles/Vol] 28.0 mmol/L Normal 21.0-32.0 [facility] Comment on above: Order Comment: Order Date: 06/01/24 Order Info: [id number] - CMP Order Info: [id number] - LIPID Performed By: #### L 502.0250, L506.1000, L500.4050, L500.4100 #### [facility] [address] [place], [address] Creatinine [Mass/Vol] 0.74 mg/dL Normal 0.55-1.02 [facility] Comment on above: Order Comment: Order Date: 06/01/24 Order Info: [id number] - CMP Order Info: [id number] - LIPID Result Comment: The validity of the calculated GFR GFRAA in patients over 70 years has not been determined. Clinical correlation is essential. Performed By: #### L 502.0250, L506.1000, L500.4050, L500.4100 #### [facility] [address] [place], [address] EST GFR - AA 97 mL/min Normal >60 [facility] Comment on above: Order Comment: Order Date: 06/01/24 Order Info: [id number]- - CMP Order Info: [id number] - LIPID Result Comment: Afri can [place] GFR Calc Performed By: #### L 502.0250, L506.1000, L500.4050, L500.4100 #### [facility] [address] [place], [address] GAP 5 Normal 5-15 [facility] Comment on above: Order Comment: Order Date: 06/01/24 Order Info: [id number]- - CMP Order Info: [id number] - LIPID Performed By: #### L 502.0250, L506.1000, L500.4050, L500.4100 #### [facility] [address] [place], [address] GFR/1.73 sq M.predicted among non-blacks MDRD (S/P/Bld) [Vol rate/Area] 80 mL/min/{1.73_m2} Normal >60 [facility] Comment on above: Order Comment: Order Date: 06/01/24 Order Info: [id number]- - CMP Order Info: [id number] - LIPID Result Comment: Non- GFR Calc Performed By: #### L 502.0250, L506.1000, L500.4050, L500.4100 #### [facility] [address] [place], [address] Globulin (S) [Mass/Vol] 3.5 g/dL Normal 2.2-4.2 [facility] Comment on above: Order Comment: Order Date: 06/01/24 Order Info: [id number] - CMP Order Info: [id number] - LIPID Performed By: #### L 502.0250, L506.1000, L500.4050, L500.4100 #### [facility] [address] [place], [address] Glucose [Mass/Vol] 104 mg/dL Normal 74-[address] [facility] Comment on above: Order Comment: Order Date: 06/01/24 Order Info: [id number] - CMP Order Info: [id number] - LIPID Result Comment: Fast ing Glucose result from 100 to 125 mg/dL suggests IMPAIRED HOMEOSTASIS per A.D.A. criteria. Performed By: #### L 502.0250, L506.1000, L500.4050, L500.4100 #### [facility] [address] [place], [address] Potassium [Moles/Vol] 4.2 mmol/L Normal 3.5-5.1 [facility] Comment on above: Order Comment: Order Date: 06/01/24 Order Info: [id number] - CMP Order Info: [id number] - LIPID Performed By: #### L 502.0250, L506.1000, L500.4050, L500.4100 #### [facility] [address] [place], [address] Sodium [Moles/Vol] 139 mmol/L Normal 136-[address] [facility] Comment on above: Order Comment: Order Date: 06/01/24 Order Info: [id number] - CMP Order Info: [id number] - LIPID Performed By: #### L 502.0250, L506.1000, L500.4050, L500.4100 #### [facility] [address] [place], [address] T PROT 7.0 g/dL Normal 6.4-8.2 [facility] Comment on above: Order Comment: Order Date: 06/01/24 Order Info: [id number] - CMP Order Info: [id number] - LIPID Performed By: #### L 502.0250, L506.1000, L500.4050, L500.4100 #### [facility] [address] [place], [address] Urea nitrogen [Mass/Vol] 14 mg/dL Normal 7-18 [facility] Comment on above: Order Comment: Order Date: 06/01/24 Order Info: [id number]- - CMP Order Info: [id number] - LIPID Performed By: #### L 502.0250, L506.1000, L500.4050, L500.4100 #### [facility] [address] [place], [address] Lipid Profileon 06-03-2024 Cholesterol [Mass/Vol] 167 mg/dL Normal [address] [facility] Comment on above: Order Comment: Order Date: 06/01/24 Order Info: [id number]- - CMP Order Info: [id number] - LIPID Result Comment: <200 mg/dL Desirable 200-240 mg/dL Borderline >240 mg/dL High Risk Performed By: #### L 502.0250, L506.1000, L500.4050, L500.4100 #### [facility] [address] [place], [address] Cholesterol in HDL [Mass/Vol] 60 mg/dL Normal [facility] Comment on above: Order Comment: Order Date: 06/01/24 Order Info: [id number]- - CMP Order Info: [id number] - LIPID Result Comment: The drugs N-Acetylcysteine and Metamizole may falsely depress this assay. Reference Range HDL <40 mg/dL Low HDL Cholesterol HDL >or= 60 mg/dL High HDL Cholesterol Performed By: #### L 502.0250, L506.1000, L500.4050, L500.4100 #### [facility] [address] [place], [address] Cholesterol in LDL [Mass/Vol] 81 mg/dL Normal 0-130 [facility] Comment on above: Order Comment: Order Date: 06/01/24 Order Info: [id number] - CMP Order Info: [id number] - LIPID Performed By: #### L 502.0250, L506.1000, L500.4050, L500.4100 #### [facility] [address] [place], [address] Cholesterol in VLDL [Mass/Vol] 26 mg/dL Normal 5-40 [facility] Comment on above: Order Comment: Order Date: 06/01/24 Order Info: [id number] - CMP Order Info: [id number] - LIPID Performed By: #### L 502.0250, L506.1000, L500.4050, L500.4100 #### [facility] [address] [place], [address] Triglyceride [Mass/Vol] 129 mg/dL Normal [facility] Comment on above: Order Comment: Order Date: 06/01/24 Order Info: [id number] - CMP Order Info: [id number] - LIPID Result Comment: The drugs N-Acetylcysteine and Metamizole may falsely depress this assay. Serum Triglycerides Reference Interval Normal <150 mg/dL Borderline high 150 - 199 mg/dL High 200 - 499 mg/dL Very High > or = 500 mg/dL Performed By: #### L 502.0250, L506.1000, L500.4050, L500.4100 #### [facility] [address] [place], [address] Microalb:Creat Ratio,Random URon 06-03-2024 Creatinine [Mass/Vol] 48.10 mg/dL Normal NO RAN GE EST. [facility] Comment on above: Order Comment: Order Date: 06/01/24 Order Info: [id number] - MIACRE Performed By: #### L 502.0250, L506.1000, L500.4050, L500.4100 #### [facility] [address] [place], [address] MALB:CRE TNP Normal <30 mg/g CRE [facility] Comment on above: Order Comment: Order Date: 06/01/24 Order Info: [id number] - MIACRE Performed By: #### L 502.0250, L506.1000, L500.4050, L500.4100 #### [facility] [address] [place], [address] MICROALBUMIN,UR < 5.0 Normal NO RANGE EST. [facility] Comment on above: Order Comment: Order Date: 06/01/24 Order Info: [id number] - MIACRE Performed By: #### L 502.0250, L506.1000, L500.4050, L500.4100 #### [facility] [address] [place], [address] Vitamin D,25 Hydroxyon 06-03 Vitamin D 25-OH 39.3 ng/mL Normal [facility] Comment on above: Order Comment: Order Date: 06/01/24 Order Info: [id number] - VITD25 Result Comment: Ratna min D 25(OH) Status Range Deficiency <20 ng/mL (50nmol/L) Insufficiency 20 - 30 ng/mL (50 - 75 nmol/L) Sufficiency 30 - 100 ng/mL (75 - 250 nmol/L) Toxicity >100 ng/mL (>250 nmol/L) Performed By: #### L 502.0250, L506.1000, L500.4050, L500.4100 #### [facility] [address] [place], [address] Basophil percentageOrdered B y: Otis Pennington on 04-02-2023 Chloride [Moles/Vol] 104 mmol/L 98-[address] [facility] Glucose [Mass/Vol] 97 mg/dL 74-[address] [facility] Potassium [Moles/Vol] 4.4 mmol/L 3.5-5.1 [facility] Sodium [Moles/Vol] 136 mmol/L 136-[address] [facility] Laboratory - Chemistry and C hemistry - challengeOrdered By: Otis Pennington on 04-02-2023 CO2 [Moles/Vol] 28.0 mmol/L 21.0-32.0 [facility] Urea nitrogen/Creatinine [Mass ratio] 25.1 mg/mg 10-20 [facility] No Panel InformationOrdered By: Otis Pennington on 04-02-2023 Estimated GFR (MDRD) Amer 77 mL/min >60 [facility] Comment on above: GFR Calc Estimated GFR (MDRD) Non-Af Amer 63 mL/min >60 [facility] Comment on above: Non- GFR Calc Serum or plasma calcium jesus urement (mass/volume)Ordered By: Otis Pennington on 04-02-2023 Calcium [Mass/Vol] 9.1 mg/dL 8.5-10.[address] [facility] Serum or plasma creatinine m easurement (mass/volume)Ordered By: Otis Pennington on 04-02-2023 Creatinine [Mass/Vol] 0.92 mg/dL 0.55-1.02 [facility] Comment on above: The validity of the calculated GFR & GFRAA in patients over 70 years has not been determined. Clinical correlation is essential. Serum or plasma urea nitroge n measurement (mass/volume)Ordered By: Otis Pennington on 04-02-2023 Urea nitrogen [Mass/Vol] 23 mg/dL 7-18 [facility] Thin prep Papanicolaou smear with manual screeningOrdered By: Otis Pennington on 04-02-2023 Thin prep Papanicolaou smear with manual screening 4 5-15 [facility] Basophil percentageOrdered B y: Dr. Pennington on 11-08-2022 Bilirubin [Mass/Vol] 0.90 mg/dL 0.20-1.[address] [facility] Comment on above: For patients on eltr ombopag therapy, use of Dimension [place] TBIL is not recommended. Chloride [Moles/Vol] 107 mmol/L 98-[address] [facility] Cholesterol [Mass/Vol] 195 mg/dL <200 [facility] Comment on above: <200 mg/dL Desirable 200-240 mg/dL Borderline >240 mg/dL High Risk Glucose [Mass/Vol] 105 mg/dL 74-[address] [facility] Comment on above: Fasting Glucose resu lt from 100 to 125 mg/dL suggests IMPAIRED HOMEOSTASIS per A.D.A. criteria. Potassium [Moles/Vol] 4.4 mmol/L 3.5-5.1 [facility] Protein [Mass/Vol] 7.2 g/dL 6.4-8.[address] [facility] Sodium [Moles/Vol] 143 mmol/L 136-[address] [facility] Triglyceride [Mass/Vol] 140 mg/dL <199 [facility] Comment on above: The drugs N-Acetylcy steine and Metamizole may falsely depress this assay.Serum Triglycerides Reference Interval Normal <150 mg/dL Borderline high 150 - 199 mg/dL High 200 - 499 mg/dL Very High > or = 500 mg/dL Laboratory - Chemistry and C hemistry - challengeOrdered By: Dr. Pennington on 11-08-2022 ALP [Catalytic activity/Vol] 83 U/L 45-117 [facility] ALT [Catalytic activity/Vol] 22 U/L 13-56 [facility] CO2 [Moles/Vol] 29.0 mmol/L 21.0-32.0 [facility] Globulin (S) [Mass/Vol] 3.5 g/dL 2.2-4.2 [facility] Urea nitrogen/Creatinine [Mass ratio] 22.6 mg/mg 10-20 [facility] No Panel InformationOrdered By: Dr. Pennington on 11-08-2022 Estimated GFR (MDRD) Amer 96 mL/min >60 [facility] Comment on above: GFR Calc Estimated GFR (MDRD) Non-Af Amer 80 mL/min >60 [facility] Comment on above: Non- GFR Calc Thyroid Stimulating Hormone (TSH) 2.67 uIU/mL 0.358-3.74 [facility] Serum or plasma albumin jesus urement (mass/volume)Ordered By: Dr. Pennington on 11-08-2022 Albumin [Mass/Vol] 3.7 g/dL 3.2-5.[address] [facility] Serum or plasma albumin/glob ulin mass ratioOrdered By: Dr. Pennington on 11-08-2022 Albumin/Globulin [Mass ratio] 1.1 {ratio} 0.9-2.4 [facility] Serum or plasma calcium jesus urement (mass/volume)Ordered By: Dr. Pennington on 11-08-2022 Calcium [Mass/Vol] 9.2 mg/dL 8.5-10.[address] [facility] Serum or plasma cholesterol in HDL measurement (mass/volume)Ordered By: Dr. Pennington on 11-08-2022 Cholesterol in HDL [Mass/Vol] 57 mg/dL >40 [facility] Comment on above: The drugs N-Acetylcy steine and Metamizole may falsely depress this assay. Reference Range HDL <40 mg/dL Low HDL Cholesterol HDL >or= 60 mg/dL High HDL Cholesterol Serum or plasma cholesterol in VLDL measurement (mass/volume)Ordered By: Dr. Pennington on 11-08-2022 Cholesterol in VLDL [Mass/Vol] 28 mg/dL 5-40 [facility] Serum or plasma creatinine m easurement (mass/volume)Ordered By: Dr. Pennington on 11-08-2022 Creatinine [Mass/Vol] 0.75 mg/dL 0.55-1.02 [facility] Comment on above: The validity of the calculated GFR & GFRAA in patients over 70 years has not been determined. Clinical correlation is essential. Serum or plasma low density lipoprotein (LDL) cholesterol measurement (mass/volume)Ordered By: Dr. Pennington on 11-08-2022 Cholesterol in LDL [Mass/Vol] 110 mg/dL 0-130 [facility] Serum or plasma urea nitroge n measurement (mass/volume)Ordered By: Dr. Pennington on 11-08-2022 Urea nitrogen [Mass/Vol] 17 mg/dL 7-18 [facility] Thin prep Papanicolaou smear with manual screeningOrdered By: Dr. Pennington on 11-08-2022 Thin prep Papanicolaou smear with manual screening 21 U/L 15-37 [facility] Thin prep Papanicolaou smear with manual screening 7 5-15 [facility] Basophil percentageon 2021 Chloride [Moles/Vol] 105 mmol/L 98-[address] [facility] Work Phone: Glucose [Mass/Vol] 129 mg/dL 74-[address] [facility] Work Phone: Comment on above: Fasting Glucose resu lt greater than or equal to 126 mg/dL suggests DIABETES MELLITUS per A.D.A. criteria. Potassium [Moles/Vol] 3.6 mmol/L 3.5-5.1 [facility] Work Phone: Sodium [Moles/Vol] 141 mmol/L 136-[address] [facility] Work Phone: Laboratory - Chemistry and C hemistry - challengeon 12-21-2021 CO2 [Moles/Vol] 32.0 mmol/L 21.0-32.0 [facility] Work Phone: Urea nitrogen/Creatinine [Mass ratio] 18.7 mg/mg 10-20 [facility] Work Phone: No Panel Informationon 12-21 Estimated GFR (MDRD) Amer 90 mL/min >60 [facility] Work Phone: Comment on above: GFR Calc Estimated GFR (MDRD) Non-Af Amer 74 mL/min >60 [facility] Work Phone: Comment on above: Non- GFR Calc Thyroid Stimulating Hormone (TSH) 3.25 uIU/mL 0.358-3.74 [facility] Work Phone: Urine Microalbumin/Creatinin e Ratio 45.5 mg/g CRE <30 [facility] Work Phone: Serum or plasma calcium jesus urement (mass/volume)on 12-21-2021 Calcium [Mass/Vol] 8.9 mg/dL 8.5-10.[address] [facility] Work Phone: Serum or plasma creatinine m easurement (mass/volume)on 12-21-2021 Creatinine [Mass/Vol] 0.80 mg/dL 0.55-1.02 [facility] Work Phone: Comment on above: The validity of the calculated GFR & GFRAA in patients over 70 years has not been determined. Clinical correlation is essential. Serum or plasma urea nitroge n measurement (mass/volume)on 12-21-2021 Urea nitrogen [Mass/Vol] 15 mg/dL 7-18 [facility] Work Phone: Thin prep Papanicolaou smear with manual screeningon 12-21-2021 Thin prep Papanicolaou smear with manual screening 4 5-15 [facility] Work Phone: Thin prep Papanicolaou smear with manual screening 30.0 mg/L NO RANGE EST. [facility] Work Phone: Urine creatinine measurement (mass/volume)on 12-21-2021 Creatinine (U) [Mass/Vol] 66.00 mg/dL NO RANGE EST. [facility] Work Phone: Final Surgical Pathology Rep leona 08-16-2019 Final Surgical Pathology Report . Pathology Reports Accession: Collected Date/Time: Received Date/Time: Pathologist: [id number] 08/12/2019 08:09 EST 08/13/2019 08:09 EST DO KARL PAUL Final Surgical Pathology Report DIAGNOSIS: BONE WITH CHANGES OF DEGENERATIVE OSTEOARTHRITIS, RIGHT KNEE. COMMENT: [facility] - A# [id number] CLINICAL INFORMATION: RIGHT KNEE PAIN - OSTEOARTHRITIS SPECIMEN: A RIGHT KNEE BONE GROSS DESCRIPTION: Received- in formalin Labeled with the patient's name Description/dimensions- multiple convex and concave fragmented portions of el-yellow bone/soft tissue aggregating 8 x 8 x 2 cm, articular surfaces are focally eburnated, cartilage is focally nodular, underlying bone is yellow/dense to trabecular RS-1 following decalcification Dictated by Bernadette WINSTON ([facility]) MICROSCOPIC DESCRIPTION: Slides reviewed. Electronically Signed by Pathology Report verified by [facility] Electronically signed by KARL PAUL DO Sign out Date: 08/16/2019 13:38 Performing Lab: [address] ([place]) Comment on above: Performed By: #### S PFR #### [place] [address] OPERATIVE PROCEDURESon 08-16 OPERATIVE PROCEDURES [facility] OPERATIVE REPORT NAME ACCOUNT SEX AGE ADMIT DISCHARGE PT MED. RECORD# NUMBER DATE DATE TYPE SKYLAR [id number] F 74 08/12/19 2 CARMEN Cooney [id number] ROOM: [facility] DATE OF : 1945 DICTATING PHYSICIAN: Ayaz Crockett DATE OF SURGERY: August 12, 2019 SURGEON: Ayaz Crockett MD GREEN PIPEFITTER: Tami Stovall PA-C; KIRAN WhelanC ANESTHESIOLOGIST: Shari Velásquez CRNA ANESTHETIC: Duramorph spinal. PREOPERATIVE DIAGNOSIS: Right knee severe arthritis. POSTOPERATIVE DIAGNOSIS: Right knee severe arthritis. OPERATION PERFORMED: Right total knee replacement. COMPLICATIONS: None. ESTIMATED BLOOD LOSS: 50 mL. SPECIAL MEDICATIONS: Ancef, tranexamic acid and Decadron. INDICATIONS FOR SURGERY: The patient is a 74-year-old female with a history of knee pain. She has arthritis. She wished to have surgery. Appropriate informed consent was obtained and signed. She was cleared for surgery by the medical team. FINDINGS: Findings showed severe arthritis of the right knee. She underwent a standard anterior approach to the knee followed by a cemented ConforMIS total knee replacement. We used a pre-made femur and tibia. The polyethylene was size 7E, corresponding with 7.1 mm of medial polyethylene and 10.4 mm of lateral polyethylene. We used a 32 x 6 symmetric patella. XE polyethylene was utilized. She underwent standard wound closure in layers. certified medical technician assistant, physician engineering inspection assistant was utilized throughout the entire procedure. She was vital in helping with patient positioning, holding of limbs, and holding of retractors. She helped with exposure throughout. She helped with alignment, sizing and Page 1 of 3 CARMEN CHENG Operative Report CARMEN CHENG : 1945 implantation of the components, wound closure, bandage application, and patient transfer. Without the surgical garment assembly supervisor, surgical time would have been increased, and surgical outcome could have been less optimal. DESCRIPTION OF OPERATION: The patient was taken to the operating room and transferred to the OR table. She was given a Duramorph spinal anesthetic. Ancef was given IV preoperatively as well as IV Decadron and tranexamic acid. SONI hose and an SCD were placed on the nonoperative limb. The right upper thigh was well padded and the tourniquet applied there. The right lower extremity was prepped, padded and draped in the usual sterile orthopedic fashion for the procedure. The limb was exsanguinated, and the tourniquet was applied to 200 mmHg. We injected the anterosuperior knee with our pain-relieving solution of epinephrine, Duramorph and ropivacaine. A midline incision was carried through skin and subcutaneous tissue, bringing us down to the extensor mechanism. Medial parapatellar arthrotomy was carried out. Straw-colored joint fluid was evacuated. A sleeve of tissue was raised off the upper and medial tibia. Some of the infrapatellar fat pad was resected. Degenerative medial and lateral menisci were removed. The ACL was removed. The PCL was preserved. The collateral ligaments were preserved. Tissue was taken off the anterior aspect of the distal femur. We resected bone spurs from about the patella. Severe arthritis was noted throughout the knee. Joint fluid was evacuated. We used our cutting guide system on the femur and tibia per pre-made plans. We took cartilage off the appropriate spots on the distal femur and upper tibia. We did out anterior, posterior and chamfer cuts with the help of the assistants holding the retractors. Our cutting guides were held in place with pins. We then did the tibial cut with the guide with a -2 cut on the tibia and a 9-degree posterior slope built in to reproduce her anatomy. The cut was carried out with the saw. The bony fragment was removed. We trialed and were happy with our construct. The sclerotic bone at the upper tibia was freshened with a pin. We thoroughly irrigated, cleaned and dried the knee. We did use the punch and the drill on the upper tibia when we checked our alignment, and it was in good position. The patella was everted, measured and appropriate resection carried out. A 14 mm thick patella remained. We trialed, and a 32 x 6 mm patella was good for her. We used the drill guide held by the surgeon. The drilling was done by the engineering inspection assistant. Bone spurs had been removed from the posteromedial and posterolateral aspects of the femur as well. At this point, two full batches of bone cement were mixed. We thoroughly irrigated, cleaned and dried the knee. We controlled the bleeding at the back of the knee with the Bovie. We injected the back of the knee with our pain-relieving solution with the spinal needle. When the knee was clean and dry and the cement was at the appropriate texture, we cemented on the tibia, femur and patella. The patella was clamped in position, and the other things were hammered into position. The excess bone cement was removed. We placed the 7A inserts while the cement was hardening. Once the cement was fully hardened and the tourniquet was let down at 39 minutes and the bleeding was controlled with the Bovie, we again trialed and decided on the 7E inserts. The actual inserts were then sequentially placed on a clean, dry tibia and seated down fully. Irrisept solution was utilized throughout the knee again and irrigated out. We then repaired the wound with a deep #1 Vicryl, a running #2 Stratafix, a mid-layer of 0 Vicryl, inverted 2-0 Vicryl, Steri-Strips, and a Mepilex dressing. The patient was awakened from her anesthetic Page 2 of 3 CARMEN CHENG Operative Report CARMEN CHENG : 1945 and transferred back to her own bed in the recovery room in satisfactory condition. She will be an observation patient overnight and hopefully discharged home tomorrow. We will use aspirin for DVT prevention. Dictated By: Ayaz Crockett MD 08/12/19 14:31 JOB #: [id number] Transcribed By: margoth 08/13/19 15:27 Electronically signed by: E-SIGN DR. AYAZ CROCKETT M.D. 08/16/19 11:05 Page 3 of 3 NKECHIGIL CARMEN Cooney Operative Report Normal [facility] PROGRESS NOTEon 08-16-2019 PROGRESS NOTE [facility] PROGRESS NOTE NAME ACCOUNT SEX AGE ADMIT DISCHARGE PT MED. RECORD# NUMBER DATE DATE TYPE SKYLAR [id number] F 74 08/12/19 2 CARMEN Cooney [id number] ROOM: 304 DATE OF : 1945 DICTATING PHYSICIAN: Ayaz Crockett DATE OF SERVICE: August 13, 2019 PATIENT TYPE: Observation. PROCEDURE: Right total knee replacement on August 12, 2019. CHIEF COMPLAINT: Knee replacement. SUBJECTIVE: The patient is postoperative day #1 from right total knee replacement. She denies chest pain or shortness of breath. She denies fevers or chills. She is hoping for discharge to home later today. She is planning on outpatient physical therapy. OBJECTIVE: On physical examination, she has been afebrile. TC is 97.9. Vital signs were reviewed. Nursing 24-hour summary sheet was reviewed. Medication list was reviewed. The patient's right knee bandage is on, clean and dry. Mepilex dressing has no blood on it. Her knee motion is 0-40 degrees. She is able to actively lift both legs off the bed easily. She has good plantar flexion and dorsiflexion bilaterally. Normal sensation. Normal pulses distally. Legs are neurovascularly intact without signs of DVT. DIAGNOSTIC DATA: X-rays, AP and lateral, of the right knee from the recovery room show a cemented ConforMIS total knee replacement in good position without obvious loosening, failure or fracture. Laboratory work shows a white count of 12.8, hemoglobin 12, and platelet count 271,000. Metabolic panel was reviewed and showed a glucose of 127. ASSESSMENT: 1. Right total knee replacement for arthritis. 2. History of hypertension. 3. History of hypercholesterolemia. PLAN: Treatment options were discussed with the patient at length. We will plan on discharge to home later today. We will prescribe the appropriate amount of extended release morphine and [place] for pain. We will plan to put her back on her home prescription medications, including the Ativan, metoprolol and simvastatin. She will start outpatient therapy. She will do home exercises. She understands the wound care. All of her questions were answered. Page 1 of 2 CARMEN CHENG Progress Note CARMEN CHENG : 1945 Dictated By: Ayaz Crockett MD 08/13/19 07:21 JOB #: [id number] Transcribed By: margoth 08/13/19 10:16 Electronically signed by: E-SIGN DR. AYAZ CROCKETT M.D. 08/16/19 11:05 Page 2 of 2 CARMEN CHENG Progress Note Normal [facility] BMP with eGFRon 08-13-2019 Age - Reported 74 years Normal [facility] Comment on above: Performed By: #### 2 [id number] #### [facility],[address] [place] [address] Anion gap [Moles/Vol] 11 mmol/L Normal 10 - 20 [facility] Comment on above: Performed By: #### 2 30465 #### [facility],[address] [place] [address] Calcium [Mass/Vol] 8.8 mg/dL Normal 8.6 - 10.2 [facility] Comment on above: Performed By: #### 2 55692 #### [facility],[address] [place] [address]80 Chloride [Moles/Vol] 103 mmol/L Normal 98 - 107 [facility] Comment on above: Performed By: #### 2 41130 #### [facility],[address] [place] [address] CO2 [Moles/Vol] 27.7 mmol/L Normal 21.0 - 31.0 [facility] Comment on above: Performed By: #### 2 77137 #### [facility],[address] [place] [address] Creatinine [Mass/Vol] 0.6 mg/dL Normal 0.6 - 1.2 [facility] Comment on above: Performed By: #### 2 35406 #### [facility],[address] [place] [address] GFR/1.73 sq M predicted among non-blacks MDRD (S/P/Bld) [Vol rate/Area] mL/min/{1.73_m2} Normal 60 - 999 [facility] Comment on above: Performed By: #### 2 39765 #### [facility],[address] [place] [address] Result Comment: ACCO RDING TO THE NATIONAL KIDNEY DISEASE EDUCATION PROGRAM(NKDE), A NORMAL eGFR IS A VALUE GREATER THAN OR EQUAL TO 60 ML/MIN/1.73 SQ METERS. CHRONIC KIDNEY DISEASE: <60mL/MIN/1.73 SQ METERS KIDNEY FAILURE: <15mL/MIN/1.73 SQ METERS THIS TEST SHOULD ONLY BE USED FOR PATIENTS 18 YEARS OF AGE AND OLDER. GFR/1.73 sq M predicted among non-blacks MDRD (S/P/Bld) [Vol rate/Area] Normal [facility] Comment on above: Result Comment: BASI C METABOLIC PANEL Performed By: #### 2 65627 #### [facility],[address] [place] [address] Glucose [Mass/Vol] 127 mg/dL High 74 - 106 [facility] Comment on above: Performed By: #### 2 04890 #### [facility],[address] [place] [address] Potassium [Moles/Vol] 4.0 mmol/L Normal 3.5 - 5.1 [facility] Comment on above: Performed By: #### 2 26840 #### [facility],[address] [place] [address]133 Sodium [Moles/Vol] 138 mmol/L Normal 136 - 145 [facility] Comment on above: Performed By: #### 2 08041 #### [facility],[address] [place] [address] Urea nitrogen [Mass/Vol] 11 mg/dL Normal 6 - 20 [facility] Comment on above: Performed By: #### 2 66470 #### [facility],[address] [place] [address] 26584 CBC + DIFFon 08-13-2019 Basophils (Bld) [#/Vol] 0.00 x10EE3/UL Normal 0.00 - 0.10 [facility] Comment on above: Performed By: #### 2 26715 #### [facility],[address] [place] [address] 60261 Basophils/100 WBC (Bld) 0.1 % Normal 0.0 - 2.0 [facility] Comment on above: Performed By: #### 2 06974 #### [facility],[address] [place] [address] 15321 CBC + DIFF Normal [facility] Comment on above: Result Comment: CBC- COMPLETE BLOOD COUNT Performed By: #### 2 72430 #### [facility],[address] [place] [address]82 Eosinophils (Bld) [#/Vol] 0.00 x10EE3/UL Normal 0.00 - 0.50 [facility] Comment on above: Performed By: #### 2 34498 #### [facility],[address] [place] [address] 64419 Eosinophils/100 WBC (Bld) 0.0 % Normal 0.0 - 7.0 [facility] Comment on above: Performed By: #### 2 08395 #### [facility],[address] [place] [address] Erythrocyte distribution width (RBC) [Ratio] 13.2 % Normal 12.0 - 15.6 [facility] Comment on above: Performed By: #### 2 53587 #### [facility],[address] [place] [address] Hematocrit (Bld) [Volume fraction] 36.3 % Normal 34.0 - 46.0 [facility] Comment on above: Performed By: #### 2 87445 #### [facility],[address] [place] [address] Hemoglobin (Bld) [Mass/Vol] 12.0 g/dL Normal 12.0 - 16.0 [facility] Comment on above: Performed By: #### 2 02777 #### [facility],[address] [place], [place] [id number] Lymphocytes (Bld) [#/Vol] 0.90 x10EE3/UL Normal 0.80 - 2.80 [facility] Comment on above: Performed By: #### 2 74899 #### [facility],[address] [place], [place] [id number] Lymphocytes/100 WBC (Bld) 7.0 % Low 20.0 - 45.0 [facility] Comment on above: Performed By: #### 2 42345 #### [facility],[address] [place], [place] [id number] MANUAL DIFF N/A Normal [facility] Comment on above: Performed By: #### 2 45442 #### [facility],[address] [place], [place] [id number] MCH (RBC) [Entitic mass] 28 pg Normal 27 - 33 [facility] Comment on above: Performed By: #### 2 37916 #### [facility],[address] [place], [place] [id number] MCHC (RBC) [Mass/Vol] 33 X10 3 Normal 32 - 36 [facility] Comment on above: Performed By: #### 2 69078 #### [facility],[address] [place], [place] [id number] MCV (RBC) [Entitic vol] 85 fL Normal 80 - 99 [facility] Comment on above: Performed By: #### 2 52950 #### [facility],[address] [place], [place] [id number] Monocytes (Bld) [#/Vol] 0.70 x10EE3/UL Normal 0.20 - 1.00 [facility] Comment on above: Performed By: #### 2 59177 #### [facility],[address] [place], [place] [id number] MONOS % 5.7 % Normal 0.0 - 10.0 [facility] Comment on above: Performed By: #### 2 27180 #### [facility],[address] [place], [place] [id number] Morphology Semaj (Bld) [Interp] N/A Normal [facility] Comment on above: Performed By: #### 2 70279 #### [facility],[address] [place] [address] 30690 Neutrophils (Bld) [#/Vol] 11.20 x10EE3/UL High 1.50 - 7.10 [facility] Comment on above: Performed By: #### 2 79511 #### [facility],[address] [place], [place] [id number] Neutrophils/100 WBC (Bld) 87.2 % High 46.0 - 76.0 [facility] Comment on above: Performed By: #### 2 67684 #### [facility],[address] [place] [address] Platelet mean volume (Bld) [Entitic vol] 7.7 fL Normal 6.6 - 10.5 [facility] Comment on above: Result Comment: AUTO MATED DIFFERENTIAL Performed By: #### 2 75283 #### [facility],[address] [place] [address]4280 Platelets (Bld) [#/Vol] 271 x10EE3/UL Normal 150 - 450 [facility] Comment on above: Performed By: #### 2 48628 #### [facility],[address] [place] [address] 25715 RBC (Bld) [#/Vol] 4.28 x 10EE6/UL Normal 4.10 - 5.30 [facility] Comment on above: Performed By: #### 2 77222 #### [facility],[address] [place] [address]25 WBC (Bld) [#/Vol] 12.8 x 10EE3/UL High 4.5 - 10.8 [facility] Comment on above: Performed By: #### 2 04382 #### [facility],[address] [place] [address] 38151 KNEE 2 VIEWS RTon 08-12-2019 KNEE 2 VIEWS RT [place] [address] Patient: CARMEN CHENG Phone#: : 1945 Age: 74 Gender: F Pt. Type: In Account: [id number] Location: [facility] Ordering: AYAZ CROCKETT Exam Date: 08/12/2019/14:57 Family Phys: OTIS PENNINGTON Charge Code: 692500 Physician: Twiggs Order #: [id number] DLP Dose#: PROCEDURE: X-RAY KNEE RT 2 VIEWS COMPARISON: None. INDICATIONS: Post-op evalulation. FINDINGS: BONES: Femoral and tibial hardware components from right knee arthroplasty. Changes in undersurface of the patella consistent patellar button. SOFT TISSUES: Expected postoperative air in the soft tissues. EFFUSION: None visible. OTHER: Negative. CONCLUSION: 1. Expected postoperative changes of right knee arthroplasty. Dictated by: Nannette Reese MD on 08/12/2019 at 17:07 Approved by: Nannette Reese MD on 08/12/2019 at 17:07 Normal [facility] HISTORY AND PHYSICAL EXAMon 08-05-2019 HISTORY AND PHYSICAL EXAM [facility] HISTORY & PHYSICAL NAME ACCOUNT SEX AGE ADMIT DISCHARGE PT MED. RECORD# NUMBER DATE DATE TYPE SKYLAR [id number] F 74 07/28/19 Mariangel Cooney [id number] ROOM: DATE OF : [birth year] DICTATING PHYSICIAN: Tami Stovall PROCEDURE TYPE: Right total knee replacement. PROCEDURE DATE: August 12, 2019 ATTENDING PHYSICIAN: Dr. Ayaz Crockett HISTORY OF PRESENT ILLNESS: This is a 74-year-old female with a chief complaint of right knee pain that has been ongoing and getting progressively worse since July of 2018. Symptoms are described as constant, intermittent, sharp, and stabbing. Worse with stairs, walking any distance. Sitting, resting, and elevating the leg along with ice packs can help to alleviate her pain at times. The pain is limiting her activity. Activity modifications include a reduced ability to perform normal daily activities. She has difficulty with certain housework. She cannot walk through the grocery store. She is no longer partaking in leisure activities such as long walks or gardening. She cannot exercise any longer. She tripped and stumbled. She has even fallen at times. She feels unsafe on stairs while carrying things due to a self reported sense of instability. Conservative measures have included rest, ice, elevation, cortisone injection approximately 2, one in September and 1 in November with only short term relief. She has tried compression, physical therapy in August of 2018 and April of 2019 with continued home exercises. She tried viscosupplementation January of 2019 with any long-term relief. She has tried Celebrex, nabumetone, Aleve, and Tylenol. She has not had any previous surgeries on this knee. She has used a cane for the past 4 or 5 months. She has tried a compressive brace for greater than a year. She feels that she has failed adequate conservative nonoperative treatment measures and wishes to proceed with a right total knee replacement at this time. PAST MEDICAL HISTORY: Consistent with (1) Osteoarthritis. (2) Hypertension. (3) Hypercholesterolemia. PAST SURGICAL HISTORY: (1) Melanoma removed 2002 [facility]. (2) Deviated septum repair 1988 [facility]. MEDICATIONS: Current medications include (1) Ativan 0.5 mg 1 p.o. 2 times per day as needed. (2) Calcium 1 p.o. every day. (3) Magnesium oxide 400 1 p.o. every day. (4) Metoprolol extended release 50 mg 1 p.o. every day. (5) Osteo Bi-Flex 2 p.o. every day. (6) Simvastatin 10 mg 1 p.o. every day. (7) Vitamin D 1 p.o. every day. ALLERGIES: Include (1) Bactrim. (2) Sulfa. (3) Thimerosal. Page 1 of 4 CARMEN CHENG History & Physical CARMEN CHENG :1945 SOCIAL HISTORY: She is retired. She denies tobacco use. Denies alcohol use. Denies illicit drug use. REVIEW OF SYSTEMS: Documented in the [facility] medical history sheet. Please refer to attached document. PHYSICAL EXAMINATION GENERAL APPEARANCE: The patient is alert and oriented x3 in no acute distress at rest, breathing easily without respiratory distress. VITAL SIGNS: Height 65 inches. Weight 159 pounds, BMI 26.5. Blood pressure 145/79, pulse 57, respirations 16, temperature 96.8. HEENT: Head normocephalic and atraumatic. Eyes: PERRLA, EOMI, sclera anicteric, conjunctivae without injection. Ears: Auditory acuity grossly intact bilaterally. Nose: Bilateral patent nares without tenderness or drainage. Throat: Pharynx is clear without erythema, exudate. Tongue and uvula midline. Buccal mucosa pink and moist. NECK: Supple without adenopathy, JVD, carotid bruits, masses, or tenderness. CHEST: Symmetrical. Nontender to palpation. AP diameter within normal limits. HEART: Regular rate and rhythm without murmurs, rubs, or gallops appreciated at this time. LUNGS: Clear to auscultation bilaterally without wheezes, rales, or rhonchi. ABDOMEN: Soft and nondistended. Normoactive bowel sounds x4 without tenderness. NEUROLOGICAL: Cranial nerves II through XII are grossly intact without any focal sensory or motor deficits noted. EXTREMITIES/MUSCULOSKEL ETAL: Right knee has pain and crepitance with motion lacking 3 degrees of extension with flexion to 120 degrees. Right knee is ligamentously stable. Grade 5 strength. Pain on palpation about the right knee. No bruising, swelling, or abnormal masses. No hip pain with motion. Negative straight leg raise. She does have 2 slightly raised skin lesions over the anterior knee. These would be medial to her incision. Scar from her previous biopsy. Distal pulses and sensation are normal. DIAGNOSTIC DATA: X-rays of the right knee, [facility] [place] September 09, 2018 weightbearing, AP, sunrise, and notch and lateral views, are with [id number] contact, some sclerosis. No osteophyte formation. IMPRESSION: Page 2 of 4 CARMEN CHENG History & Physical CARMEN CHENG :1945 1. Right knee primary osteoarthritis. 2. Hypertension. 3. Hypercholesterolemia. PLAN: Dr. Ayaz Crockett did discuss and review with the patient all treatment options including surgical versus nonsurgical. At this time, the patient does wish to proceed with a right total knee replacement. Potential risks, benefits, and complications of this procedure were reviewed in detail including, but not limited to , infection, nerve and blood vessel damage, persistent pain, numbness, tingling, paresthesias, blood clot, pulmonary embolism, and the requirement of possible further surgery. The patient expressed full understanding, has no further questions for the doctor, and does agree to proceed with the above stated procedure and signed the appropriate surgery consent form. Her plan is for discharge to home upon leaving the hospital after 1 overnight stay. Dictated By: Tami Stovall PA-C 07/28/19 13:56 JOB #: [id number] Transcribed By: sanjaan 07/28/19 17:06 Electronically signed by: E-sign Tami WINSTON 08/03/19 07:58 Update to H&P: [ ] No changes: I have examined the patient and reviewed the H&P and there are no changes. [ ] As previously dictated with the following changes: PHYSICIAN SIGNATURE: __ TIME: DATE: Page 3 of 4 CARMEN CHENG A History & Physical Normal [facility] BMP with eGFR DAILYon 2018 Age - Reported 74 years Normal [facility] Comment on above: Performed By: #### 2 [id number] #### [facility],[address] [place], [place] [id number] Anion gap [Moles/Vol] 10 mmol/L Normal 10 - 20 [facility] Comment on above: Performed By: #### 2 [id number] #### [facility],[address] [place] [address]377 Calcium [Mass/Vol] 9.9 mg/dL Normal 8.6 - 10.2 [facility] Comment on above: Performed By: #### 2 [id number] #### [facility],[address] [place] [address] 80442 Chloride [Moles/Vol] 103 mmol/L Normal 98 - 107 [facility] Comment on above: Performed By: #### 2 16150 #### [facility],[address] [place] [address] 54612 CO2 [Moles/Vol] 30.6 mmol/L Normal 21.0 - 31.0 [facility] Comment on above: Performed By: #### 2 94945 #### [facility],[address] [place] [address] 84618 Creatinine [Mass/Vol] 0.8 mg/dL Normal 0.6 - 1.2 [facility] Comment on above: Performed By: #### 2 [id number] #### [facility],[address] [place] [address] 47462 GFR/1.73 sq M predicted among non-blacks MDRD (S/P/Bld) [Vol rate/Area] Normal [facility] Comment on above: Result Comment: BASI C METABOLIC PANEL Performed By: #### 2 [id number] #### [facility],[address] [place] [address] 63890 GFR/1.73 sq M predicted among non-blacks MDRD (S/P/Bld) [Vol rate/Area] mL/min/{1.73_m2} Normal 60 - 999 [facility] Comment on above: Performed By: #### 2 67437 #### [facility],[address] [place] [address]82 Result Comment: ACCO RDING TO THE NATIONAL KIDNEY DISEASE EDUCATION PROGRAM(NKDE), A NORMAL eGFR IS A VALUE GREATER THAN OR EQUAL TO 60 ML/MIN/1.73 SQ METERS. CHRONIC KIDNEY DISEASE: <60mL/MIN/1.73 SQ METERS KIDNEY FAILURE: <15mL/MIN/1.73 SQ METERS THIS TEST SHOULD ONLY BE USED FOR PATIENTS 18 YEARS OF AGE AND OLDER. Glucose [Mass/Vol] 111 mg/dL High 74 - 106 [facility] Comment on above: Performed By: #### 2 72877 #### [facility],[address] [place] [address] 59986 Potassium [Moles/Vol] 3.8 mmol/L Normal 3.5 - 5.1 [facility] Comment on above: Performed By: #### 2 61326 #### [facility],[address] [place] [address] 79090 Sodium [Moles/Vol] 140 mmol/L Normal 136 - 145 [facility] Comment on above: Performed By: #### 2 75612 #### [facility],[address] [place] [address] 96449 Urea nitrogen [Mass/Vol] 19 mg/dL Normal 6 - 20 [facility] Comment on above: Performed By: #### 2 28103 #### [facility],[address] [place], [place] [phone] CBC (NO DIFF)on 07-28-2019 CBC (NO DIFF) Normal [facility] Comment on above: Result Comment: CBC( WITHOUT DIFFERENTIAL) Performed By: #### 2 58675 #### [facility],[address] [place] [address]93 Erythrocyte distribution width (RBC) [Ratio] 13.6 % Normal 12.0 - 15.6 [facility] Comment on above: Performed By: #### 2 79550 #### [facility],[address] [place] [address] 89740 Hematocrit (Bld) [Volume fraction] 42.6 % Normal 34.0 - 46.0 [facility] Comment on above: Performed By: #### 2 74157 #### [facility],[address] [place] [address] 08181 Hemoglobin (Bld) [Mass/Vol] 13.9 g/dL Normal 12.0 - 16.0 [facility] Comment on above: Performed By: #### 2 55090 #### [facility],[address] [place] [address] 04822 MCH (RBC) [Entitic mass] 28 pg Normal 27 - 33 [facility] Comment on above: Performed By: #### 2 95876 #### [facility],[address] [place] [address] 29184 MCHC (RBC) [Mass/Vol] 33 X10 3 Normal 32 - 36 [facility] Comment on above: Performed By: #### 2 49346 #### [facility],[address] [place] [address] 35106 MCV (RBC) [Entitic vol] 85 fL Normal 80 - 99 [facility] Comment on above: Performed By: #### 2 55002 #### [facility],[address] [place] [address] 74748 Platelet mean volume (Bld) [Entitic vol] 8.3 fL Normal 6.6 - 10.[address] [facility] Comment on above: Performed By: #### 2 62709 #### [facility],[address] [place] [address] 41299 Platelets (Bld) [#/Vol] 249 x10EE3/UL Normal 150 - 450 [facility] Comment on above: Performed By: #### 2 35586 #### [facility],[address] [place] [address] 39941 RBC (Bld) [#/Vol] 4.99 x 10EE6/UL Normal 4.10 - 5.30 [facility] Comment on above: Performed By: #### 2 28630 #### [facility],[address] [place] [address] 06781 WBC (Bld) [#/Vol] 6.3 x 10EE3/UL Normal 4.5 - 10.8 [facility] Comment on above: Performed By: #### 2 88196 #### [facility],[address] [place] [address] KNEE W/O CONTRAST RIGHTon 07-09-2019 CT KNEE W/O CONTRAST RIGHT ORIGINAL CT KNEE W/O CONTRAST RIGHT This exam was performed according to our departmental dose optimization program, and includes the following measures where applicable: automated exposure control, adjustment of the mAs and/or kVp according to patient size and/or exam, and an iterative reconstruction algorithm. CLINICAL STATEMENT: unilateral primary osteoarthritis. Preoperative planning COMPARISON: None FINDINGS: Imaging was performed for surgical guidance. There is degenerative narrowing of the medial knee joint compartment with subchondral sclerosis and small marginal osteophytes. There are small osteophytes off the patellofemoral joint. Small joint effusion is present. No acute or healing fractures or bony destructive processes are seen. IMPRESSION: As above. Interpreted By: Misael Díaz Preliminary Report By: Misael Díaz Electronically Signed By: Misael Díaz Dictated Date: 07/09/2019 12:29:50 PM Prelim Date: 07/09/2019 12:29:50 PM Sign Date: 07/09/2019 12:32:49 PM Ordering Provider:Ayaz Crockett [facility] ([place]) Encounters Encounter Date Encounter Type Care Provider Facility Start: 12-28-2024 End: 12-28-[address] Otis Pennington MD Work Phone: [facility] Work Phone: Start: 12-28-2024 End: 12-28-[address] Otis Pennington MD -Outpatient Breast Imaging Work Phone: Start: 12-28-2024 End: 12-28-2024 ambulatory Otis Pennington Facility:[facility] Start: 06-03-2024 End: 06-03-2024 ambulatory Otis Pennington Facility:[facility] Start: 12-18-2023 End: 12-18-2023 ambulatory [facility] Work Phone: Start: 12-18-2023 End: 12-18-2023 Patient encounter procedure [facility]-Outpatient Breast Imaging Work Phone: Start: 04-02-2023 End: 04-02-2023 ambulatory [facility] Work Phone: Start: 04-02-2023 End: 04-02-2023 Patient encounter procedure [facility] Start: 11-20-2022 Patient encounter procedure [facility]-Outpatient Bone Densitometry Start: 11-08-2022 End: 11-08-2022 ambulatory [facility] Work Phone: Start: 11-08-2022 End: 11-08-2022 Patient encounter procedure [facility] Start: 12-21-2021 End: 12-21-2021 Patient encounter procedure [facility] Start: 11-14-2021 End: 11-14-2021 Patient encounter procedure [facility]-Outpatient Breast Imaging Start: 09-03-2021 End: 09-03-2021 Patient encounter procedure [facility]-Laboratory, Specimen Start: 08-12-2019 End: 08-13-2019 Patient encounter procedure AYAZ ROMO [facility] Start: 07-28-2019 Encounter for other preprocedural examination AYAZ [facility] Start: 07-28-2019 End: 07-28-2019 Patient encounter procedure AYAZ CROCKETT [facility] Encounter for other preprocedural examination AYAZ [facility] Procedures Date Procedure Procedure Detail Performing Clinician Start: 12-28-2024 Screening mammograph y of bilateral breasts Dr. Otis Pennington MD Work Phone: Start: 12-18-2023 Screening mammography Start: 11-14-2021 Screening mammography Start: 09-03-2021 End: 09-03-2021 Clostridium difficile detection Plan of Treatment Date Care Activity Detail Author Start: 11-20-2022 Dual energy X-ray absorptiometry Dexa Bone Density Study [facility] Start: 11-20-2022 Screening mammography SCRN RANDOLPH M (CAD)W/JONO BILAT [facility] Payers Date Payer Category Payer Self-pay [id number] 2013 Private Health Insurance [id number] 2012 Medicare [id number] 1945 Unknown [id number] 1945 Unknown [id number] Unknown [id number] Unknown [id number] [id number] Social History Date Type Detail [facility] Work Phone: Start: 1945 Sex Assigned At Female W [facility] Tobacco smoking stat [facility] Unknown if ever smoked [facility] Work Phone: Start: 01-03-2025 [facility] Note Date & Type Note Facility Evaluation note No assessment information availa ble [facility] Work Phone: Reason for referral (narrative) Note Date & Type Note Facility Reason for referral (narrative) No reason for referral information available [facility] Work Phone: Summary Purpose Family History No Family History Records FoundNo Family History Records FoundNo Family History Records Found Advance Directives No Advanced Directives Records FoundNo Advanced Directives Records FoundNo Advanced Directives Records Found Chief Complaint and Reason for Visit Chief Complaint SCREENING Chief Complaint SCREENING/OSTEO Chief Complaint Admit Date SCREENING December 28, 2024 10:2 0am Additional Source Comments INFORMATION SOURCE (unrecogn ized section and content) DATE CREATED AUTHOR 08/16/2019 [facility] DATE CREATED AUTHOR AUTHOR'S ORGANIZ ATION 08/16/2019 [facility] ([place]) DATE CREATED AUTHOR AUTHOR'S ORGANIZ ATION 01/04/2025 [facility] Goals (unrecognized section and content) Goals may be documented in a n alternate sectionGoals may be documented in an alternate sectionGoals may be documented in an alternate sectionGoals may be documented in an alternate sectionGoals may be documented in an alternate section Care Teams (unrecognized sec tion and content) Team Status: Active Member Role Status Dates Dr. Otis Pennington MD Family Provider Active Dr. Otis Pennington MD Primary Care Provider Active Team Status: Active Member Role Status Dates Dr. Otis Pennington MD Primary Care Provide r, Attending Provider, Referring Provider Active Team Status: Inactive Member Role Status Dates Dr. Otis Pennington MD Primary Care Provide r, Attending Provider, Referring Provider Active Team Status: Inactive Member Role Status Dates Dr. Otis Pennington MD Primary Care Provider, Attending Jesus sage Active Team Status: Active Member Role Status Dates Dr. Otis Pennington MD Primary Care Provider Active Team Status: Inactive Member Role Status Dates Dr. Otis Pennington MD Primary Care Provider Active Start: December 28, 2024 End: December 28, 2024 Dr. Otis Pennington MD Attending Provider Active St art: December 28, 2024 End: December 28, 2024 Dr. Otis Pennington MD Referring Provider Active St art: December 28, 2024 End: December 28, 2024 FOR RECORDS PERTAINING TO PATIENTS WHO ARE OR HAVE BEEN ENROLLED IN A CHEMICAL DEPENDENCY/SUBSTANCEABUSE PROGRAM, SOME INFORMATION MAY BE OMITTED. This clinical summary was aggregated from multiple sources. Caution should be exercised in using it in the provision of clinical care. This summary normalizes information from multiple sources, and as a consequence, information in this document may materially change the coding, format and clinical context of patient data. In addition, data may be omitted in some cases. CLINICAL DECISIONS SHOULD BE BASED ON THE PRIMARY CLINICAL RECORDS. [facility] [place] [employer] provides no warranty or guarantee of the accuracy or completeness of information in this document.
[2025-06-21 10:26] LABS: Hematocrit 41.1 % (37-47); Hemoglobin 13.5 g/dL (12.0-15.0); Immature Granulocytes Count 0.020 X10^3/uL (0.0-0.0); Mean Corp Hgb Conc 32.8 g/dL (32-36); Mean Corpuscular Volume 89.0 fL (81-99); Mean Platelet Vol. 10.6 fl (6.2-12.0); NRBC Flagged by Analyzer 0 % (0-5); Platelet Count 226 K/mm3 (150-450); RBC Distribution Width CV 13.0 % (11.6-14.6); RBC Distribution Width SD 42.4 fl (35.1-43.9); Red Blood Count 4.62 M/mm3 (4.2-5.4); White Blood Count 6.6 K/mm3 (4.4-11.0)
[2025-06-21 10:47] LABS: AST(SGOT) 21 U/L (<=31); Alanine Aminotransfer ALT/SGPT 13 U/L (<=34); Albumin, Serum 4.0 g/dL (3.4-4.8); Alkaline Phosphatase 75 U/L (35-104); Anion Gap 9 (5-15); BUN 15 mg/dL (4-19); BUN/Creat Ratio 20.3 RATIO (10-20); Calcium,Total 9.2 mg/dL (7.6-11.0); Carbon Dioxide 26.5 mmol/L (21.0-32.0); Chloride 104 mmol/L (98-108); Cholesterol 179 mg/dL (<=200); Globulin 2.7 g/dL (2.2-4.2); Glucose 104 mg/dL (70-99); Low Density Lipoprotein Calc. 99 mg/dL; Potassium 4.5 mmol/L (3.3-5.1); Triglycerides 120 mg/dL; Very Low Density Lipoprotein 24 mg/dL (5-40); cholesterol:hdl ratio screen 3.18
== END | disposition home or self-care (01) ==
LOC: MTLAB 07:34
PROVIDERS: PCP Family Medicine; Referring Provider Family Medicine; Visit Provider Family Medicine
DX: E78.5 Hyperlipidemia, unspecified (principal)
CPT/HCPCS: 36415; 80053; 80061; 85025